=== PATIENT | female | born 1995 | race American Indian/Alaskan Native ===

== ENCOUNTER 2022-12-04 02:47 | Emergency (ER) | payer OTHER ==
[2022-12-04] MEDS ORDERED: Lidocaine 1% with EPINEPHrine 1:100,000 20 ML MDV INJECT ONE (03:31)
[2022-12-04] MEDS ORDERED: Bacitracin Oint 1 GM U/D Packet TOP ONE (03:31)
== END 2022-12-04 06:45 ==
LOC: DL.ED 02:47
DX: S01.112A Laceration without foreign body of left eyelid and periocular area, initial encounter (principal); S01.111A Laceration without foreign body of right eyelid and periocular area, initial encounter; J32.0 Chronic maxillary sinusitis; Z72.0 Tobacco use; Y04.0XXA Assault by unarmed brawl or fight, initial encounter
CPT/HCPCS: 12002; 12013; 70450; 70486; 72125; 81025; 99284; A9270; J3490